=== PATIENT | female | born 1940 | race Caucasian/White ===

== ENCOUNTER 2017-08-12 22:40 | Inpatient (IN) | payer OTHER ==
[~2017-08-12] VITALS: Ht 167.6 cm; Wt 82.3 kg
[~2017-08-12 22:40] MED LIST: ACET650S21 PO; ALBU8.5H5 INH; ALPR0.25 PO; AMLO10TA2 PO; APIX5TAB PO; ASPI-515 PO; ASPI-621 PO; BACL-19 PO; BUDE10.2 INH; DOCU-131 PO; DOXY100T PO; FLUO10CA7 PO; FLUT1DIS3 INH; GABA300C10 PO; HYDR-3237 PO; HYDR-3241 PO; HYDR-3307 PO; HYDR25TA6 PO; LEVE750T8 PO; LEVO150T5 PO; LEVO25CA2 PO; LEVO500T47 PO; LISI-170 PO; LISI1TAB7 PO; LISI30TA4 PO; LOVA40TA2 PO; LOVASTATIN PO; METO25TA91 PO; METOPROLOL PO; ONDA4TAB10 PO; OXYC-302 PO; OXYC-307 PO; POLY17PO5 PO; ROPI1TAB2 PO; TIOT18CA INH; TOPI25CA PO; TOPI25TA8 PO; ZOLP10TA PO; ZOLP5TAB6 PO
[2017-08-12] MEDS ORDERED: LEVE750T37 PO (22:53)
[2017-08-12] MEDS ORDERED: methylPREDNISolone SOD SUCC 125 MG/2 ML ONE (22:57)
[2017-08-12] MEDS ORDERED: ALBUTEROL/IPRATROPIUM 2.5MG/0.5MG, 3 ML NPPB ONE (23:00)
[2017-08-12] MEDS ORDERED: SODIUM CHLORIDE FLUSH 10ML SYR IVF ONE (23:00)
[2017-08-12] MEDS ORDERED: methylPREDNISolone SOD SUCC 125 MG/2 ML IVP ONE (23:00)
[2017-08-12] MEDS ORDERED: ALBUTEROL/IPRATROPIUM 2.5MG/0.5MG, 3 ML ONE (23:01)
[2017-08-12] MEDS ORDERED: AZITHROMYCIN 500 MG in SODIUM CHLORIDE 0.9% 250 ML IVPB ONE (23:30)
[2017-08-12] MEDS ORDERED: CEFTRIAXONE PMX 1GM/50ML 50 ML IVPB ONE (23:30)
[2017-08-12] MEDS ORDERED: CEFTRIAXONE PMX 1GM/50ML 50 ML ONE (23:34)
[2017-08-12] MEDS ORDERED: HEPARIN 5,000 UNITS/ML, 1ML IV ONE (23:45)
[2017-08-13] LABS: BASOPHILS # (AUTO) 0.07 x10^3/uL (0-0.1); BASOPHILS % (AUTO) 1 % (0-1); EOSINOPHILS # (AUTO) 0.35 x10^3/uL (0-0.4); EOSINOPHILS % (AUTO) 3 % (1-7); LYMPHOCYTES # (AUTO) 3.22 x10^3/uL (1-3.4); LYMPHOCYTES % (AUTO) 29 % (22-44); MD NO; MEAN CORPUSCULAR HEMOGLOBIN 30.1 pg (27.0-34.8); MEAN CORPUSCULAR HGB CONC 33.3 g/dL (32.4-35.8); MEAN CORPUSCULAR VOLUME 90.6 fL (80-100); MEAN PLATELET VOLUME 9.4 fL (7.4-10.4); MONOCYTES # (AUTO) 0.68 x10^3/uL (0.2-0.8); MONOCYTES % (AUTO) 6 % (2-9); NEUTROPHILS # (AUTO) 6.83 x10^3/uL (1.8-6.8); NEUTROPHILS % (AUTO) 61 % (42-75); PLATELET COUNT 305 x10^3/uL (130-400); RED BLOOD COUNT 4.29 x10^6/uL (3.82-5.3); RED CELL DISTRIBUTION WIDTH 12.8 % (9.6-15.2)
[2017-08-13 00:13] LABS: ALANINE AMINOTRANSFERASE 37 U/L (12-78); ALBUMIN 2.8 g/dL (3.4-5.0); ANION GAP 7 mmol/L (5-15); CALCIUM 8.7 mg/dL (8.5-10.1); CHLORIDE 112 mmol/L (98-107); CREATININE 0.88 mg/dL (0.55-1.02)
[2017-08-13 00:14] LABS: INTERNATIONAL NORMALIZED RATIO 0.98 (0.93-1.1); PROTHROMBIN TIME 10.2 Seconds (9.6-11.5)
[2017-08-13 00:18] LABS: ALKALINE PHOSPHATASE 122 U/L (45-117); BILIRUBIN,TOTAL 0.4 mg/dL (0.2-1.0); TROPONIN I < 0.015 ng/mL (0.000-0.045)
[2017-08-13] MEDS ORDERED: HEPARIN 25,000 UNITS/500ML PMX 500 ML ONE (00:24)
[2017-08-13] MEDS ORDERED: HEPARIN 5,000 UNITS/ML, 1ML ONE ×2 (00:24→07:20)
[2017-08-13] MEDS: HEPARIN 25,000 UNITS/500ML PMX 500 ML IV PRN (00:52)
[2017-08-13] MEDS: methylPREDNISolone SOD SUCC 40 MG/ML IVPush SCH ×4 (04:00→22:48)
[2017-08-13] MEDS ORDERED: hydrALAzine 20 MG/ML, 1ML IVPush PRN (04:00)
[2017-08-13] MEDS: CEFTRIAXONE PMX 1GM/50ML 50 ML IV SCH (04:00)
[2017-08-13] MEDS ORDERED: ONDANSETRON 2MG/ML, 2ML IVPush PRN (04:00)
[2017-08-13] MEDS ORDERED: morphine SULFATE 10 MG/ML, 1ML IVPush PRN (04:00)
[2017-08-13] MEDS: AZITHROMYCIN 500 MG in SODIUM CHLORIDE 0.9% 250 ML IV SCH (04:00)
[2017-08-13] MEDS ORDERED: ACETAMINOPHEN 325 MG TABLET PO PRN (04:00)
[2017-08-13] MEDS ORDERED: TEMPLATE NON-FORMULARY MED. (Albuterol Sulfate** (Albuterol Sulfate Hfa**) 2 PUFF(S)) INH PRN (04:00)
[2017-08-13] MEDS: NS + 20MEQ KCL 1,000 ML IV SCH ×2 (07:14→13:47)
[2017-08-13 08:45] VITALS: BP 152/77
[2017-08-13] MEDS ORDERED: AMLODIPINE 5 MG TABLET ONE (09:04)
[2017-08-13] MEDS ORDERED: LISINOPRIL 20 MG TABLET ONE (09:05)
[2017-08-13] MEDS: LOVASTATIN 40 MG TABLET PO SCH (09:25)
[2017-08-13] MEDS: AMLODIPINE 5 MG TABLET PO SCH (09:25)
[2017-08-13] MEDS: POLYETHYLENE GLYCOL 17 GM PACKET PO SCH (09:25)
[2017-08-13] MEDS: LEVOTHYROXINE 125 MCG TABLET PO SCH (09:25)
[2017-08-13] MEDS: LISINOPRIL 20 MG TABLET PO SCH (09:28)
[2017-08-13] MEDS: HEPARIN 5,000 UNITS/ML, 1ML IV PRN ×2 (13:32→20:49)
[2017-08-13 14:40] VITALS: BP 137/60
[2017-08-13] MEDS ORDERED: ALBUTEROL/IPRATROPIUM 2.5MG/0.5MG, 3 ML ONE (16:22)
[2017-08-13] MEDS: HYDROcodone/APAP 5/325 TABLET PO PRN ×2 (18:04→23:23)
[2017-08-13 19:15] VITALS: BP 144/67
[2017-08-13] MEDS: ALBUTEROL/IPRATROPIUM 2.5MG/0.5MG, 3 ML NPPB SCH (19:30)
[2017-08-14 02:05] VITALS: BP 142/60
[2017-08-14 03:06] LABS: BASOPHILS # (AUTO) 0.01 x10^3/uL (0-0.1); BASOPHILS % (AUTO) 0 % (0-1); EOSINOPHILS % (AUTO) 0 % (1-7); LYMPHOCYTES # (AUTO) 0.74 x10^3/uL (1-3.4); LYMPHOCYTES % (AUTO) 9 % (22-44); MD NO; MEAN CORPUSCULAR HEMOGLOBIN 29.7 pg (27.0-34.8); MEAN CORPUSCULAR HGB CONC 32.8 g/dL (32.4-35.8); MEAN CORPUSCULAR VOLUME 90.6 fL (80-100); MEAN PLATELET VOLUME 9.7 fL (7.4-10.4); MONOCYTES # (AUTO) 0.33 x10^3/uL (0.2-0.8); MONOCYTES % (AUTO) 4 % (2-9); NEUTROPHILS # (AUTO) 7.08 x10^3/uL (1.8-6.8); NEUTROPHILS % (AUTO) 87 % (42-75); PLATELET COUNT 290 x10^3/uL (130-400)
[2017-08-14 03:15] LABS: ALANINE AMINOTRANSFERASE 25 U/L (12-78); ALBUMIN 2.4 g/dL (3.4-5.0); ANION GAP 8 mmol/L (5-15); CHLORIDE 110 mmol/L (98-107); CREATININE 1.03 mg/dL (0.55-1.02)
[2017-08-14 03:26] LABS: ALKALINE PHOSPHATASE 100 U/L (45-117); BILIRUBIN,TOTAL 0.2 mg/dL (0.2-1.0); TOTAL PROTEIN 6.5 g/dL (6.4-8.2)
[2017-08-14] MEDS: HEPARIN 5,000 UNITS/ML, 1ML IV PRN (03:26)
[2017-08-14 03:27] LABS: THYROID STIMULATING HORMONE < 0.005 mIU/L (0.358-3.740)
[2017-08-14] MEDS: CEFTRIAXONE PMX 1GM/50ML 50 ML IV SCH (03:27)
[2017-08-14] MEDS: HYDROcodone/APAP 5/325 TABLET PO PRN ×3 (03:28→14:22)
[2017-08-14] MEDS: AZITHROMYCIN 500 MG in SODIUM CHLORIDE 0.9% 250 ML IV SCH (04:34)
[2017-08-14] MEDS: HEPARIN 25,000 UNITS/500ML PMX 500 ML IV PRN (04:36)
[2017-08-14 06:50] VITALS: BP 141/89
[2017-08-14] MEDS: ALBUTEROL/IPRATROPIUM 2.5MG/0.5MG, 3 ML NPPB SCH ×4 (08:55→19:47)
[2017-08-14] MEDS: AMLODIPINE 5 MG TABLET PO SCH (08:56)
[2017-08-14] MEDS: LEVOTHYROXINE 125 MCG TABLET PO SCH (08:56)
[2017-08-14] MEDS: LISINOPRIL 20 MG TABLET PO SCH (08:56)
[2017-08-14] MEDS: LOVASTATIN 40 MG TABLET PO SCH (08:56)
[2017-08-14] MEDS: POLYETHYLENE GLYCOL 17 GM PACKET PO SCH (08:57)
[2017-08-14] MEDS: POTASSIUM CHLORIDE 20 MEQ TAB.ER.PRT PO SCH ×2 (11:49→17:24)
[2017-08-14] MEDS: APIXABAN 5 MG TABLET PO SCH ×2 (11:51→20:57)
[2017-08-14] MEDS ORDERED: OMNIPAQUE 350 MG/ML, 100ML BOTTLE ONE (15:00)
[2017-08-14 18:47] VITALS: BP 137/63
[2017-08-15 00:35] VITALS: BP 137/75
[2017-08-15] MEDS: AZITHROMYCIN 500 MG in SODIUM CHLORIDE 0.9% 250 ML IV SCH (04:45)
[2017-08-15] MEDS: CEFTRIAXONE PMX 1GM/50ML 50 ML IV SCH (04:45)
[2017-08-15] MEDS: ALBUTEROL/IPRATROPIUM 2.5MG/0.5MG, 3 ML NPPB SCH (06:19)
[2017-08-15 07:34] VITALS: BP 160/82
[2017-08-15] MEDS: LISINOPRIL 20 MG TABLET PO SCH (08:16)
[2017-08-15] MEDS: AMLODIPINE 5 MG TABLET PO SCH (08:16)
[2017-08-15] MEDS: APIXABAN 5 MG TABLET PO SCH ×2 (08:16→20:47)
[2017-08-15] MEDS: LEVOTHYROXINE 125 MCG TABLET PO SCH (08:17)
[2017-08-15] MEDS: POTASSIUM CHLORIDE 20 MEQ TAB.ER.PRT PO SCH (08:17)
[2017-08-15] MEDS: LOVASTATIN 40 MG TABLET PO SCH (08:17)
[2017-08-15] MEDS: POLYETHYLENE GLYCOL 17 GM PACKET PO SCH (08:17)
[2017-08-15] MEDS: HYDROcodone/APAP 5/325 TABLET PO PRN ×2 (08:31→20:47)
[2017-08-15] MEDS ORDERED: HYDROcodone/CHLORPHENIR ORAL SUSP PO PRN (11:00)
[2017-08-15 11:37] LABS: ANION GAP 5 mmol/L (5-15); CALCIUM 8.2 mg/dL (8.5-10.1); CHLORIDE 113 mmol/L (98-107); CREATININE 0.68 mg/dL (0.55-1.02)
[2017-08-15] MEDS: KETOROLAC 30 MG/1 ML IVPush SCH ×3 (11:57→23:14)
[2017-08-15 13:55] VITALS: BP 141/66
[2017-08-15 14:21] VITALS: BP 141/66
[2017-08-15 18:47] VITALS: BP 134/66
[2017-08-15 19:30] LABS: TROPONIN I 0.032 ng/mL (0.000-0.045)
[2017-08-15] MEDS ORDERED: ALBUTEROL/IPRATROPIUM 2.5MG/0.5MG, 3 ML NPPB PRN (20:00)
[2017-08-15 23:46] LABS: TROPONIN I 0.023 ng/mL (0.000-0.045)
[2017-08-16 01:51] VITALS: BP 134/63
[2017-08-16] MEDS: CEFTRIAXONE PMX 1GM/50ML 50 ML IV SCH (04:20)
[2017-08-16] MEDS: AZITHROMYCIN 500 MG in SODIUM CHLORIDE 0.9% 250 ML IV SCH (04:20)
[2017-08-16] MEDS: KETOROLAC 30 MG/1 ML IVPush SCH (04:43)
[2017-08-16 07:12] VITALS: BP 147/61
[2017-08-16] MEDS ORDERED: REGADENOSON 0.4 MG/5 ML SYRINGE ONE (08:00)
[2017-08-16 08:20] VITALS: BP 137/79
[2017-08-16] MEDS: POLYETHYLENE GLYCOL 17 GM PACKET PO SCH (09:00)
[2017-08-16] MEDS: HYDROcodone/APAP 5/325 TABLET PO PRN ×2 (11:04→23:30)
[2017-08-16] MEDS: AMLODIPINE 5 MG TABLET PO SCH (12:34)
[2017-08-16] MEDS: LISINOPRIL 20 MG TABLET PO SCH (12:34)
[2017-08-16] MEDS: APIXABAN 5 MG TABLET PO SCH ×2 (12:34→21:06)
[2017-08-16] MEDS: LOVASTATIN 40 MG TABLET PO SCH (12:34)
[2017-08-16 12:50] VITALS: BP 173/79
[2017-08-16 19:29] VITALS: BP 135/82
[2017-08-17 02:09] VITALS: BP 136/70
[2017-08-17] MEDS: CEFTRIAXONE PMX 1GM/50ML 50 ML IV SCH (03:40)
[2017-08-17] MEDS: AZITHROMYCIN 500 MG in SODIUM CHLORIDE 0.9% 250 ML IV SCH (03:40)
[2017-08-17 07:33] VITALS: BP 154/75
[2017-08-17] MEDS: LOVASTATIN 40 MG TABLET PO SCH (08:57)
[2017-08-17] MEDS: POLYETHYLENE GLYCOL 17 GM PACKET PO SCH (08:58)
[2017-08-17] MEDS: LISINOPRIL 20 MG TABLET PO SCH (08:58)
[2017-08-17] MEDS: AMLODIPINE 5 MG TABLET PO SCH (08:58)
[2017-08-17] MEDS: APIXABAN 5 MG TABLET PO SCH (08:59)
[2017-08-17] MEDS: HYDROcodone/APAP 5/325 TABLET PO PRN (09:07)
[2017-08-17] MEDS ORDERED: WARF5TAB PO (10:42)
[2017-08-17] MEDS ORDERED: ENOX120S5 SQ (10:42)
[2017-08-17] MEDS ORDERED: CEFD300C37 PO (10:42)
== END 2017-08-17 18:13 | disposition home health service (06) | DRG 175 ==
LOC: ED 23:59 → EDIP 08-13 00:37 → 4WST 08-13 08:18
PROVIDERS: ADMIT Hospitalist; ATTEND Hospitalist
DX: I26.99 Other pulmonary embolism without acute cor pulmonale (principal); E43 Unspecified severe protein-calorie malnutrition; J96.01 Acute respiratory failure with hypoxia; I82.411 Acute embolism and thrombosis of right femoral vein; J18.1 Lobar pneumonia, unspecified organism; D63.8 Anemia in other chronic diseases classified elsewhere; G40.909 Epilepsy, unspecified, not intractable, without status epilepticus; I82.431 Acute embolism and thrombosis of right popliteal vein; J44.0 Chronic obstructive pulmonary disease with (acute) lower respiratory infection; E87.1 Hypo-osmolality and hyponatremia; I47.1 Supraventricular tachycardia; J44.1 Chronic obstructive pulmonary disease with (acute) exacerbation; J98.11 Atelectasis; I82.441 Acute embolism and thrombosis of right tibial vein; I27.82 Chronic pulmonary embolism; E87.6 Hypokalemia; E03.9 Hypothyroidism, unspecified; E78.5 Hyperlipidemia, unspecified; K21.9 Gastro-esophageal reflux disease without esophagitis; F32.9 Major depressive disorder, single episode, unspecified; G89.29 Other chronic pain; M54.9 Dorsalgia, unspecified; I10 Essential (primary) hypertension; Z68.29 Body mass index [BMI] 29.0-29.9, adult; Z86.14 Personal history of Methicillin resistant Staphylococcus aureus infection; Z86.73 Personal history of transient ischemic attack (TIA), and cerebral infarction without residual deficits; Z87.891 Personal history of nicotine dependence; Z90.710 Acquired absence of both cervix and uterus; Z98.41 Cataract extraction status, right eye; Z98.42 Cataract extraction status, left eye
CPT/HCPCS: 36415; 71045; 71275; 78452; 80048; 80053; 83605; 83735; 83880; 84100; 84439; 84443; 84484; 85025; 85520; 85610; 85730; 87040; 93005; 93017; 93306; 94640; 96365; 96366; 96368; 96375; J0456; J0696; J1644; J1885; J2785; J3480; J7620; Q9967; A9502; C9898; J2270; J2920; J2930; J7050

== ENCOUNTER 2018-06-07 17:26 | Inpatient (IN) | payer OTHER ==
[~2018-06-07] VITALS: Ht 170.2 cm; Wt 95.2 kg
[~2018-06-07 17:26] MED LIST changes: -AMLO10TA2 PO; +AMLO10TA8 PO; -ASPI-621 PO; +ASPI81TA45 PO; +CEFD300C37 PO; +ENOX120S5 SQ; +LEVE750T37 PO; +WARF5TAB PO
--- NOTE | 2018-06-07 17:41 | NUR ---
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
--- NOTE | 2018-06-07 17:46 | NUR ---
US at bedside.
[2018-06-07] MEDS ORDERED: LEVE250T28 PO (17:52)
--- NOTE | 2018-06-07 17:53 | NUR ---
Dr. Meza at bedside to evaluate pt.
[2018-06-07] MEDS ORDERED: OMNIPAQUE 350 MG/ML, 100ML BOTTLE ONE (18:00)
[2018-06-07] MEDS ORDERED: SODIUM CHLORIDE FLUSH 10ML SYR IVF ONE (18:00)
--- NOTE | 2018-06-07 18:00 | NUR ---
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 POC discussed, pt understands plan for CTA and monitoring. NSR on monitors. at bedside.
[2018-06-07 18:15] LABS: BASOPHILS # (AUTO) 0.03 x10^3/uL (0-0.1); BASOPHILS % (AUTO) 1 % (0-1); EOSINOPHILS % (AUTO) 4 % (1-7); LYMPHOCYTES # (AUTO) 3.35 x10^3/uL (1-3.4); LYMPHOCYTES % (AUTO) 49 % (22-44); MD NO; MEAN CORPUSCULAR HEMOGLOBIN 30.3 pg (27.0-34.8); MEAN CORPUSCULAR HGB CONC 33.5 g/dL (32.4-35.8); MEAN CORPUSCULAR VOLUME 90.5 fL (80-100); MEAN PLATELET VOLUME 9.5 fL (7.4-10.4); MONOCYTES # (AUTO) 0.49 x10^3/uL (0.2-0.8); MONOCYTES % (AUTO) 7 % (2-9); NEUTROPHILS # (AUTO) 2.67 x10^3/uL (1.8-6.8); NEUTROPHILS % (AUTO) 39 % (42-75); PLATELET COUNT 242 x10^3/uL (130-400); RED BLOOD COUNT 4.73 x10^6/uL (3.82-5.3); RED CELL DISTRIBUTION WIDTH 13.8 % (9.6-15.2)
[2018-06-07 18:21] LABS: INTERNATIONAL NORMALIZED RATIO 1.05 (0.93-1.1)
[2018-06-07 18:22] LABS: ALBUMIN 3.8 g/dL (3.4-5.0); ANION GAP 3 mmol/L (5-15); CHLORIDE 113 mmol/L (98-107); CREATININE 0.92 mg/dL (0.55-1.02)
--- NOTE | 2018-06-07 18:34 | NUR ---
Pt to imaging, with tech, via gudamaris.
--- NOTE | 2018-06-07 18:43 | NUR ---
Pt back to room from imaging.
[2018-06-07] MEDS ORDERED: HEPARIN 5,000 UNITS/ML, 1ML IV ONE ×2 (19:00→21:00)
[2018-06-07] MEDS ORDERED: HEPARIN 25,000 UNITS/500ML PMX 500 ML IV PRN (19:00)
[2018-06-07] MEDS ORDERED: HEPARIN 5,000 UNITS/ML, 1ML IV PRN (19:00)
[2018-06-07] MEDS ORDERED: HEPARIN 5,000 UNITS/ML, 1ML ONE (19:03)
[2018-06-07] MEDS ORDERED: HEPARIN 25,000 UNITS/500ML PMX 500 ML ONE (19:04)
--- NOTE | 2018-06-07 19:15 | NUR ---
Pt educated regarding heparin gtt and importance of calling for assistance with any need to stand up or get out of bed. Pt ambulated to bathroom with standby assist at this time.
--- NOTE | 2018-06-07 19:21 | NUR ---
Heparin started with another RN. Pt understands plan to be admitted with heparin therapy.
--- NOTE | 2018-06-07 19:22 | NUR ---
Dr. Meza at bedside to discuss ED findings and POC.
[2018-06-07] MEDS ORDERED: SODIUM CHLORIDE FLUSH 10ML SYR IVF PRN (19:30)
--- NOTE | 2018-06-07 19:47 | NUR ---
Ha QUIGLEY, and [employer] D[employer] student, at bedside to evaluate pt for admission.
--- NOTE | 2018-06-07 19:57 | NUR ---
Telephone SBAR report given to RNYari. Pt made aware of new room assignment.
[2018-06-07 20:22] VITALS: BP 153/67
[2018-06-07] MEDS ORDERED: FUROSEMIDE 40 MG/4 ML IV ONE (20:30)
[2018-06-07] MEDS: ALBUTEROL SULFATE 2.5 MG/3 ML NPPB SCH (20:30)
[2018-06-07] MEDS: BUDESONIDE 0.5 MG/2 ML INHA NPPB SCH (21:00)
[2018-06-07] MEDS ORDERED: TEMPLATE NON-FORMULARY MED. (Budesonide/Formoterol Fumarate (Symbicort 160-4.5 Mcg Inhaler INH SCH (21:00)
[2018-06-07] MEDS: SODIUM CHLORIDE FLUSH 10ML SYR IVF SCH (21:00)
[2018-06-07] MEDS ORDERED: WARFARIN 5 MG TABLET PO-COUM ONE (21:00)
[2018-06-07] MEDS ORDERED: POLYETHYLENE GLYCOL 17 GM PACKET PO PRN (21:00)
[2018-06-07] MEDS ORDERED: BISACODYL 10 MG SUPP PR PRN (21:00)
[2018-06-07] MEDS ORDERED: ONDANSETRON ODT 4 MG PO PRN (21:00)
[2018-06-07 21:29] LABS: FREE T4 (FREE THYROXINE) 1.12 ng/dL (0.76-1.46); THYROID STIMULATING HORMONE 0.007 mIU/L (0.358-3.740)
[2018-06-07] MEDS: LEVETIRACETAM 500 MG TABLET PO SCH (23:24)
[2018-06-07] MEDS: CARVEDILOL 12.5 MG TABLET PO SCH (23:26)
[2018-06-08 00:09] VITALS: BP 158/68
[2018-06-08 01:44] LABS: BASOPHILS # (AUTO) 0.07 x10^3/uL (0-0.1); BASOPHILS % (AUTO) 1 % (0-1); EOSINOPHILS # (AUTO) 0.38 x10^3/uL (0-0.4); EOSINOPHILS % (AUTO) 6 % (1-7); LYMPHOCYTES # (AUTO) 2.97 x10^3/uL (1-3.4); LYMPHOCYTES % (AUTO) 48 % (22-44); MD NO; MEAN CORPUSCULAR HGB CONC 33.3 g/dL (32.4-35.8); MEAN CORPUSCULAR VOLUME 90.1 fL (80-100); MEAN PLATELET VOLUME 9.9 fL (7.4-10.4); MONOCYTES # (AUTO) 0.38 x10^3/uL (0.2-0.8); MONOCYTES % (AUTO) 6 % (2-9); NEUTROPHILS # (AUTO) 2.38 x10^3/uL (1.8-6.8); NEUTROPHILS % (AUTO) 39 % (42-75); PLATELET COUNT 245 x10^3/uL (130-400)
[2018-06-08 01:55] LABS: ALANINE AMINOTRANSFERASE 28 U/L (12-78); ALBUMIN 3.6 g/dL (3.4-5.0); ANION GAP 5 mmol/L (5-15); CALCIUM 8.7 mg/dL (8.5-10.1); CHLORIDE 114 mmol/L (98-107); CREATININE 0.98 mg/dL (0.55-1.02)
[2018-06-08 01:57] LABS: ALKALINE PHOSPHATASE 109 U/L (45-117); BILIRUBIN,TOTAL 0.4 mg/dL (0.2-1.0); TOTAL PROTEIN 6.7 g/dL (6.4-8.2)
[2018-06-08 02:08] LABS: INTERNATIONAL NORMALIZED RATIO 1.1 (0.93-1.1); PROTHROMBIN TIME 11.5 Seconds (9.6-11.5)
[2018-06-08] MEDS: HEPARIN 5,000 UNITS/ML, 1ML IV PRN ×2 (02:17→16:29)
[2018-06-08 02:33] VITALS: BP 120/49
[2018-06-08] MEDS: ALBUTEROL SULFATE 2.5 MG/3 ML NPPB SCH ×4 (03:45→20:30)
[2018-06-08] MEDS: CARVEDILOL 12.5 MG TABLET PO SCH ×2 (05:53→17:13)
[2018-06-08 07:50] VITALS: BP 123/41
[2018-06-08] MEDS: FUROSEMIDE 20 MG/2 ML IV SCH ×2 (08:04→16:29)
[2018-06-08] MEDS: LISINOPRIL 20 MG TABLET PO SCH (08:04)
[2018-06-08] MEDS: LOVASTATIN 40 MG TABLET PO SCH (08:04)
[2018-06-08] MEDS: SODIUM CHLORIDE FLUSH 10ML SYR IVF SCH ×2 (08:05→21:21)
[2018-06-08] MEDS: SENNA/DOCUSATE TABLET PO SCH (08:05)
[2018-06-08] MEDS: LEVETIRACETAM 500 MG TABLET PO SCH ×3 (08:06→21:21)
[2018-06-08] MEDS: ACETAMINOPHEN 325 MG TABLET PO PRN (08:10)
[2018-06-08] MEDS ORDERED: LEVOTHYROXINE 125 MCG TABLET PO SCH (09:00)
[2018-06-08] MEDS: BUDESONIDE 0.5 MG/2 ML INHA NPPB SCH ×2 (09:00→20:46)
[2018-06-08 13:28] VITALS: BP 112/52
[2018-06-08 14:25] VITALS: BP 129/63
[2018-06-08] MEDS ORDERED: WARFARIN 5 MG TABLET PO-COUM ONE (18:00)
[2018-06-08] MEDS ORDERED: LOPERAMIDE 2 MG CAPSULE PO ONE (18:30)
[2018-06-08 19:56] VITALS: BP 136/58
[2018-06-08] MEDS: HEPARIN 25,000 UNITS/500ML PMX 500 ML IV PRN (21:21)
[2018-06-08 22:58] LABS: TROPONIN I < 0.015 ng/mL (0.000-0.045)
[2018-06-09 02:00] VITALS: BP 134/55
[2018-06-09] MEDS: ALBUTEROL SULFATE 2.5 MG/3 ML NPPB SCH ×4 (02:30→19:24)
[2018-06-09 03:38] LABS: INTERNATIONAL NORMALIZED RATIO 1.11 (0.93-1.1); PROTHROMBIN TIME 11.6 Seconds (9.6-11.5)
[2018-06-09] MEDS: CARVEDILOL 12.5 MG TABLET PO SCH ×2 (04:42→17:38)
[2018-06-09] MEDS: LEVOTHYROXINE 112 MCG TABLET PO SCH (04:43)
[2018-06-09] MEDS: BUDESONIDE 0.5 MG/2 ML INHA NPPB SCH ×2 (07:15→21:00)
[2018-06-09 07:16] VITALS: BP 134/73
[2018-06-09] MEDS: LISINOPRIL 20 MG TABLET PO SCH (08:29)
[2018-06-09] MEDS: LOVASTATIN 40 MG TABLET PO SCH (08:29)
[2018-06-09] MEDS: FUROSEMIDE 20 MG/2 ML IV SCH ×2 (08:29→17:35)
[2018-06-09] MEDS: SODIUM CHLORIDE FLUSH 10ML SYR IVF SCH ×2 (08:30→21:13)
[2018-06-09] MEDS: LEVETIRACETAM 500 MG TABLET PO SCH ×3 (08:31→21:13)
[2018-06-09] MEDS: SENNA/DOCUSATE TABLET PO SCH (08:31)
[2018-06-09 12:00] VITALS: BP 140/65
[2018-06-09] MEDS: HEPARIN 25,000 UNITS/500ML PMX 500 ML IV PRN (17:37)
[2018-06-09] MEDS ORDERED: WARFARIN 7.5 MG TABLET PO-COUM ONE (18:00)
[2018-06-09 19:13] VITALS: BP 123/43
[2018-06-10] MEDS: ALBUTEROL SULFATE 2.5 MG/3 ML NPPB SCH ×4 (02:30→21:00)
[2018-06-10 03:01] VITALS: BP 133/88
[2018-06-10] MEDS: CARVEDILOL 12.5 MG TABLET PO SCH ×2 (05:30→17:55)
[2018-06-10] MEDS: LEVOTHYROXINE 112 MCG TABLET PO SCH (05:32)
[2018-06-10 05:38] LABS: INTERNATIONAL NORMALIZED RATIO 1.23 (0.93-1.1); PROTHROMBIN TIME 12.8 Seconds (9.6-11.5)
[2018-06-10 05:43] VITALS: BP 130/47
[2018-06-10] MEDS: HEPARIN 5,000 UNITS/ML, 1ML IV PRN ×2 (06:10→18:13)
[2018-06-10 07:02] VITALS: BP 123/52
[2018-06-10] MEDS: LISINOPRIL 20 MG TABLET PO SCH (08:23)
[2018-06-10] MEDS: SENNA/DOCUSATE TABLET PO SCH (08:23)
[2018-06-10] MEDS: LEVETIRACETAM 500 MG TABLET PO SCH ×3 (08:23→21:17)
[2018-06-10] MEDS: FUROSEMIDE 20 MG/2 ML IV SCH ×2 (08:23→17:23)
[2018-06-10] MEDS: SODIUM CHLORIDE FLUSH 10ML SYR IVF SCH ×2 (08:23→21:17)
[2018-06-10] MEDS: LOVASTATIN 40 MG TABLET PO SCH (08:23)
[2018-06-10] MEDS: BUDESONIDE 0.5 MG/2 ML INHA NPPB SCH ×2 (09:00→21:00)
[2018-06-10] MEDS: ACETAMINOPHEN 325 MG TABLET PO PRN (11:04)
[2018-06-10 12:22] VITALS: BP 130/48
[2018-06-10] MEDS: HEPARIN 25,000 UNITS/500ML PMX 500 ML IV PRN (13:55)
[2018-06-10] MEDS: GABAPENTIN 100 MG CAPSULE PO PRN (15:32)
[2018-06-10] MEDS ORDERED: WARFARIN 10 MG TABLET PO-COUM ONE (18:00)
[2018-06-10 19:20] VITALS: BP 105/43
[2018-06-11 00:04] VITALS: BP 131/51
[2018-06-11] MEDS: ALBUTEROL SULFATE 2.5 MG/3 ML NPPB SCH ×3 (02:45→14:14)
[2018-06-11] MEDS: GABAPENTIN 100 MG CAPSULE PO PRN (05:22)
[2018-06-11 06:33] VITALS: BP 129/54
[2018-06-11] MEDS: CARVEDILOL 12.5 MG TABLET PO SCH ×2 (06:37→17:03)
[2018-06-11] MEDS: LEVOTHYROXINE 112 MCG TABLET PO SCH (06:38)
[2018-06-11 07:04] LABS: MEAN CORPUSCULAR HEMOGLOBIN 29.7 pg (27.0-34.8); MEAN CORPUSCULAR VOLUME 89.9 fL (80-100); MEAN PLATELET VOLUME 10.4 fL (7.4-10.4); PLATELET COUNT 234 x10^3/uL (130-400); RED BLOOD COUNT 4.61 x10^6/uL (3.82-5.3); RED CELL DISTRIBUTION WIDTH 14.4 % (9.6-15.2)
[2018-06-11 07:10] LABS: ANION GAP 4 mmol/L (5-15); CALCIUM 8.8 mg/dL (8.5-10.1); CHLORIDE 106 mmol/L (98-107); CREATININE 1.04 mg/dL (0.55-1.02)
[2018-06-11 07:11] LABS: INTERNATIONAL NORMALIZED RATIO 1.47 (0.93-1.1); PROTHROMBIN TIME 15.2 Seconds (9.6-11.5)
[2018-06-11] MEDS: BUDESONIDE 0.5 MG/2 ML INHA NPPB SCH (07:23)
[2018-06-11 07:41] LABS: BASOPHILS # (AUTO) 0.03 x10^3/uL (0-0.1); BASOPHILS % (AUTO) 0 % (0-1); EOSINOPHILS # (AUTO) 0.37 x10^3/uL (0-0.4); EOSINOPHILS % (AUTO) 4 % (1-7); LYMPHOCYTES # (AUTO) 1.68 x10^3/uL (1-3.4); LYMPHOCYTES % (AUTO) 17 % (22-44); MD SCAN; MONOCYTES # (AUTO) 0.38 x10^3/uL (0.2-0.8); MONOCYTES % (AUTO) 4 % (2-9); NEUTROPHILS # (AUTO) 7.55 x10^3/uL (1.8-6.8); NEUTROPHILS % (AUTO) 76 % (42-75)
[2018-06-11 08:02] VITALS: BP 142/61
[2018-06-11] MEDS: LISINOPRIL 20 MG TABLET PO SCH (08:18)
[2018-06-11] MEDS: SENNA/DOCUSATE TABLET PO SCH (08:19)
[2018-06-11] MEDS: FUROSEMIDE 20 MG/2 ML IV SCH (08:19)
[2018-06-11] MEDS: LOVASTATIN 40 MG TABLET PO SCH (08:19)
[2018-06-11] MEDS: SODIUM CHLORIDE FLUSH 10ML SYR IVF SCH (08:19)
[2018-06-11] MEDS: LEVETIRACETAM 500 MG TABLET PO SCH ×2 (08:19→15:21)
[2018-06-11] MEDS: HEPARIN 25,000 UNITS/500ML PMX 500 ML IV PRN (08:27)
[2018-06-11] MEDS: ACETAMINOPHEN 325 MG TABLET PO PRN (11:27)
[2018-06-11 12:21] VITALS: BP 136/54
[2018-06-11] MEDS ORDERED: ENOXAPARIN 100 MG/ML SQ SCH (13:00)
[2018-06-11] MEDS ORDERED: FURO20TA3 PO (13:41)
[2018-06-11] MEDS ORDERED: LEVO112T2 PO (13:41)
[2018-06-11] MEDS ORDERED: CARV12.543 PO (13:41)
[2018-06-11] MEDS ORDERED: GABA-826 PO (13:41)
[2018-06-11] MEDS ORDERED: ENOX100S4 SQ (13:41)
[2018-06-11] MEDS ORDERED: WARF5TAB PO (13:41)
[2018-06-11] MEDS ORDERED: FUROSEMIDE 20 MG TABLET PO SCH (17:00)
[2018-06-11] MEDS ORDERED: WARFARIN 10 MG TABLET PO-COUM ONE (18:00)
== END 2018-06-11 21:29 | disposition home health service (06) | DRG 292 ==
LOC: ED 18:46 → EDIP 19:27 → 3NE 20:11 → 4WST 23:00
PROVIDERS: ADMIT Internal Medicine; ATTEND Internal Medicine
DX: I11.0 Hypertensive heart disease with heart failure (principal); D68.69 Other thrombophilia; I27.82 Chronic pulmonary embolism; I82.511 Chronic embolism and thrombosis of right femoral vein; I82.531 Chronic embolism and thrombosis of right popliteal vein; E03.9 Hypothyroidism, unspecified; E78.5 Hyperlipidemia, unspecified; F32.9 Major depressive disorder, single episode, unspecified; G40.909 Epilepsy, unspecified, not intractable, without status epilepticus; G89.29 Other chronic pain; M54.9 Dorsalgia, unspecified; J44.9 Chronic obstructive pulmonary disease, unspecified; Z66 Do not resuscitate; Z79.01 Long term (current) use of anticoagulants; Z86.73 Personal history of transient ischemic attack (TIA), and cerebral infarction without residual deficits; Z90.710 Acquired absence of both cervix and uterus; Z87.891 Personal history of nicotine dependence; Z82.49 Family history of ischemic heart disease and other diseases of the circulatory system; Z98.49 Cataract extraction status, unspecified eye; Z95.820 Peripheral vascular angioplasty status with implants and grafts; I50.33 Acute on chronic diastolic (congestive) heart failure
CPT/HCPCS: 36415; 71045; 71275; 80048; 80053; 82040; 83880; 84439; 84443; 84484; 85025; 85520; 85610; 85730; 93005; 93306; 94640; 99285; G0378; J1644; J1650; J1940; J7613; J7626; Q9967

== ENCOUNTER 2019-03-30 14:42 | Emergency (ER) | payer OTHER ==
[~2019-03-30] VITALS: Ht 167.6 cm; Wt 87.0 kg
[~2019-03-30 14:42] MED LIST changes: +CARV12.543 PO; +ENOX100S4 SQ; +FURO20TA3 PO; +GABA-826 PO; -HYDR-3307 PO; +HYDR-36 PO; +LEVE250T28 PO; +LEVO112T2 PO; +LISI1TAB20 PO; -LISI1TAB7 PO; -TOPI25CA PO; +TOPI25CA3 PO
[2019-03-30] MEDS ORDERED: SILVER NITRATE STICK TP ONE ×2 (15:17→15:30)
[2019-03-30 15:28] LABS: BASOPHILS # (AUTO) 0.07 x10^3/uL (0-0.1); BASOPHILS % (AUTO) 1 % (0-1); EOSINOPHILS % (AUTO) 3 % (1-7); LYMPHOCYTES # (AUTO) 2.09 x10^3/uL (1-3.4); LYMPHOCYTES % (AUTO) 32 % (22-44); MD NO; MEAN CORPUSCULAR HEMOGLOBIN 29.5 pg (27.0-34.8); MEAN CORPUSCULAR HGB CONC 32.8 g/dL (32.4-35.8); MEAN CORPUSCULAR VOLUME 89.9 fL (80-100); MEAN PLATELET VOLUME 8.6 fL (7.4-10.4); MONOCYTES # (AUTO) 0.49 x10^3/uL (0.2-0.8); MONOCYTES % (AUTO) 8 % (2-9); NEUTROPHILS # (AUTO) 3.61 x10^3/uL (1.8-6.8); NEUTROPHILS % (AUTO) 56 % (42-75); PLATELET COUNT 322 x10^3/uL (130-400); RED BLOOD COUNT 3.38 x10^6/uL (3.82-5.3); RED CELL DISTRIBUTION WIDTH 14.8 % (9.6-15.2)
[2019-03-30 15:39] LABS: ALBUMIN 3.6 g/dL (3.4-5.0); ANION GAP 9 mmol/L (5-15); CALCIUM 8.8 mg/dL (8.5-10.1); CHLORIDE 104 mmol/L (98-107); CREATININE 1.17 mg/dL (0.55-1.02)
--- NOTE | 2019-03-30 15:50 | NUR ---
Pt resting in chair, eyes closed. Respirations even and unlabored on RA. Awaiting imaging. Bleeding from lac slowed. Labs drawn.
[2019-03-30] MEDS ORDERED: HYDROcodone/APAP 5/325 TABLET PO ONE ×2 (16:30→20:30)
--- NOTE | 2019-03-30 16:33 | NUR ---
CALL FROM LAB REGARTING PT RESULT. PT TO BE REDRAWN WITH TWO TUBES AND IF SAME ERROR OCCURS, LAB WILL BE SENT "STAT" TO [facility]. PT AND AWARE.
[2019-03-30] MEDS ORDERED: HYDROcodone/APAP 5/325 TABLET ONE ×2 (16:51→20:29)
--- NOTE | 2019-03-30 17:04 | NUR ---
PT GIVEN HEAT PACK FOR IMPROVED COMFORT. REMAINS AT BEDSIDE. AWAITING LAB FROM [facility].
--- NOTE | 2019-03-30 18:17 | NUR ---
CALL TO LAB, PER LAB "IT WILL STILL BE A WHILE" PT MOVED TO ER EZ[facility] FOR IMPROVED COMFORT. REMAINS AT BEDSIDE.
[2019-03-30] MEDS ORDERED: ALBU18HF INH (18:19)
[2019-03-30] MEDS ORDERED: HYDR10TA4 PO (18:25)
[2019-03-30] MEDS ORDERED: TRAM50TA2 PO ×2 (18:25→19:45)
[2019-03-30] MEDS ORDERED: OMEP10CA5 PO (18:25)
--- NOTE | 2019-03-30 19:07 | NUR ---
REPORT TO CRISTIANE ORTEGA.
--- NOTE | 2019-03-30 19:13 | NUR ---
REPORT RECEIVED FROM CRISTIANE MONTOYA. PLAN OF CARE DISCUSSED.
[2019-03-30] MEDS ORDERED: LISI5TAB7 PO (19:39)
[2019-03-30] MEDS ORDERED: OMEP-110 PO (19:40)
[2019-03-30] MEDS ORDERED: LEVO125T5 PO (19:40)
[2019-03-30] MEDS ORDERED: AMLO-150 PO (19:41)
[2019-03-30] MEDS ORDERED: WARF-36 PO (19:42)
[2019-03-30] MEDS ORDERED: LEVE250T5 PO (19:42)
[2019-03-30] MEDS ORDERED: LOVA40TA2 PO (19:43)
[2019-03-30] MEDS ORDERED: FURO20TA3 PO (19:44)
[2019-03-30] MEDS ORDERED: HYDR-826 PO (19:44)
--- NOTE | 2019-03-30 20:15 | NUR ---
RESULTS FROM BLANCA GASTELUM MD TO ROOM
[2019-03-30] MEDS ORDERED: PHYTONADIONE 5 MG TABLET PO ONE (20:30)
--- NOTE | 2019-03-30 20:30 | NUR ---
PATIENT PLACED ON WAFFLE MATTRESS WHILE WAITING FROM MEDS FROM PHARMACY
--- NOTE | 2019-03-30 21:05 | NUR ---
CALL PLACED TO PHARMACY FOR MEDICATIONS
--- NOTE | 2019-03-30 21:11 | NUR ---
PATIENT MEDICATED PER EMAR, TOLERATED WELL. PATIENT RESTING ON WFFLE MATTRESS, WILL REEVALUATE IN 20MIN AFTER HAND MIXER
[2019-03-30 21:12] VITALS: BP 136/49
[2019-04-03] MEDS ORDERED: ALBU18HF IH (16:24)
== END 2019-03-30 21:35 | disposition home or self-care (01) ==
LOC: ED 15:28
DX: R04.0 Epistaxis (principal); M25.552 Pain in left hip; I10 Essential (primary) hypertension; J44.9 Chronic obstructive pulmonary disease, unspecified; Z86.73 Personal history of transient ischemic attack (TIA), and cerebral infarction without residual deficits; Z79.01 Long term (current) use of anticoagulants; Z87.891 Personal history of nicotine dependence; Z86.718 Personal history of other venous thrombosis and embolism; Z86.39 Personal history of other endocrine, nutritional and metabolic disease
CPT/HCPCS: 30901; 36415; 72190; 80048; 82040; 85025; 85610; 99283; 99284